=== PATIENT | male | born 1955 | race Caucasian/White ===

== ENCOUNTER → 2017-03-25 | Outpatient (CLI) | payer OTHER ==
[~2017-03-25] MED LIST: ASPIR 8181 MG PO; DIABETA 5 MG TAB5 MG PO; GLUCOPHAGE1000 MG PO; HYDROCHLOROTHIA25 MG PO; LIORESAL TAB 1010 MG PO; PIOGLITAZONE HC15 MG PO; PLAVIX 75 MG TA75 MG PO; SIMVASTATIN20 MG PO; TESTOSTERON100 MG/ML IM; ZANTAC300 MG PO; ZESTRIL 40 MG T40 MG PO
[2017-03-25 10:47] LABS: HEMOGLOBIN 13.9 gm/dl (14.0-17.5); RED BLOOD COUNT 4.67 M/UL (4.20-5.50); WHITE BLOOD COUNT 6.6 K/UL (4.5-11.0)
[2017-03-25 11:00] LABS: BUN/CREATININE RATIO 24 (0-10)
== END ==
LOC: OPSV2 09:54 → EDSTATUS 10:00
PROVIDERS: Orthopaedic Surgery
DX: Z01.810 Encounter for preprocedural cardiovascular examination (principal); Z01.812 Encounter for preprocedural laboratory examination; T84.028A Dislocation of other internal joint prosthesis, initial encounter
CPT/HCPCS: 36415; 80048; 81001; 83036; 85025; 93005